=== PATIENT | male | born 1985 | race African-American/Black ===

== ENCOUNTER 2018-10-24 18:03 | Emergency (ER) | payer OTHER ==
[2018-10-24 18:22] VITALS: BP 119/74; PULSE 92; RESP 20; TEMP 98.3
[2018-10-24] MEDS ORDERED: KETOROLAC 60 MG/2 ML VIAL IM STA (20:19)
[2018-10-24] MEDS ORDERED: predniSONE 50 MG TAB PO STA (20:19)
--- NOTE | 2018-10-24 21:01 | XR ---
EXAMINATION TYPE: XR lumbar spine 2 or 3V DATE OF EXAM: 10/24/2018 COMPARISON: NONE HISTORY: Back pain TECHNIQUE: 3 views FINDINGS: Vertebra have normal spacing and alignment. Posterior elements are intact. Sacroiliac joint s appear normal. IMPRESSION: Normal lumbar spine exam.
--- NOTE | 2018-10-24 21:05 | ED ---
General Adult HPI - General Chief complaint: Back Pain/Injury Stated complaint: back pain Time Seen by Provider: 10/24/18 19:55 Source: patient, RN notes reviewed, old records reviewed Mode of arrival: ambulatory Limitations: no limitations - History of Present Illness Initial comments: 33-year-old male patient passed history of chronic lumbar back pain stemming from a related back injury approximately 10 years ago presents to ED with acute exacerbation of lumbar back pain. Patient denies any recent falls or trauma. 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 Patient reports that he has had approximately 2 days exacerbation of right lumbar back pain. Patient denies any saddle anesthesia, loss of bowel or bladder control, IV drug use, fevers or chills, lower extremity weakness. Systemic: Pt denies fatigue, fever/chills, rash. Pt denies weakness, night sweats, weight loss. Neuro: Pt denies headache, visual disturbances, syncope or pre-syncope. HEENT: Pt denies ocular discharge or irritation, otalgia, rhinorrhea, pharyngitis or notable lymphadenopathy. Cardiopulmonary: Pt denies chest pain, SOB, heart palpitations, dyspnea on exertion. Abdominal/GI: Pt denies abdominal pain, n/v/d. : Pt denies dysuria, burning w/ urination, frequency/urgency. Denies new onset urinary or bowel incontinence. MSK: Pt denies loss of strength or function in extremities. Neuro: Pt denies new onset weakness, paresthesias. - Related Data Previous Rx's Medication Instructions Recorded predniSONE 50 mg PO DAILY #4 tab 10/24/18 Allergies Allergy/AdvReac Type Severity Reaction Status Date / Time No Known Allergies Allergy Verified 10/24/18 18:22 Review of Systems ROS Statement: Those systems with pertinent positive or pertinent negative responses have been documented in the HPI. ROS Other: All systems not noted in ROS Statement are negative. Past Medical History Past Medical History: No Reported History History of Any Multi-Drug Resistant Organisms: None Reported Past Surgical History: No Surgical Hx Reported Past Psychological History: PTSD Smoking Status: Current every day smoker Past Alcohol Use History: None Reported Past Drug Use History: Marijuana General Exam - General Exam Comments Initial Comments: Constitutional: NAD, AOX3, Pt has pleasant affect. HEENT: NC/AT, trachea midline, neck supple, no lymphadenopathy. Posterior pharynx non erythematous, without exudates. External ears appear normal, without discharge. Mucous membranes moist. Eyes PERRLA, EOM intact. There is no scleral icterus. No pallor noted. Cardiopulmonary: RRR, no murmurs, rubs or gallops, no JVD noted. Lungs CTAB in anterior and posterior ruiz. No peripheral edema. Abdominal exam: Abdomen soft and non-distended. Abdomen non-tender to palpation in all 4 quadrants. Bowel sounds active in LLQ. No hepatosplenomegaly. No ecchymosis Neuro: CN II-XII grossly intact. No nuchal rigidity. MSK: Right paralumbar region mildly tender palpation. No midline cervical thoracic lumbar spinal tenderness. 5 out of 5 strength quadriceps psoas muscles. Heel toe walking intact. Patellar and Achilles reflex 2 out of 4 bilaterally. No posterior calf tenderness bilaterally, homans sign negative bilaterally. Posterior tibialis and radial pulse +2 bilaterally. Sensation intact in upper and lower extremities. Full active ROM in upper and lower extremities, 5/5 stregnth. Limitations: no limitations Course Vital Signs 10/24/18 18:20 Temperature 98.3 F Pulse Rate 92 Respiratory 20 Rate Blood Pressure 119/74 O2 Sat by Pulse 100 Oximetry Medical Decision Making - Medical Decision Making 33-year-old male patient passed history of chronic lumbar back pain stemming from a related back injury approximately 10 years ago presents to ED with acute exacerbation of lumbar back pain. Patient denies any recent falls or trauma. 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 Patient reports that he has had approximately 2 days exacerbation of right lumbar back pain. Patient denies any saddle anesthesia, loss of bowel or bladder control, IV drug use, fevers or chills, lower extremity weakness. Patient vital signs stable, afebrile. Physical exam displayed: Right paralumbar region mildly tender palpation. No midline cervical thoracic lumbar spinal tenderness. 5 out of 5 strength quadriceps psoas muscles. Heel toe walking intact. Patellar and Achilles reflex 2 out of 4 bilaterally. Plain film of lumbar spine displayed normal lumbar spine exam. Patient understood Toradol, prednisone. Patient discharged with 4 days of prednisone. Patient given orthopedic follow-up. Patient to return to ER if condition worsens in any way. Case discussed with Dr. Dominguez. Disposition Clinical Impression: Strain of lumbar region Disposition: HOME SELF-CARE Condition: Stable Instructions (If sedation given, give patient instructions): Acute Low Back Pain (ED), Chronic Back Pain (ED) Additional Instructions: Patient to adhere to previously discussed treatment plan and will take medication(s) as directed. Patient to follow up with PCP in 1-2 days. Patient to return to ED if symptoms do not improve. Please take medications as directed. Please use ibuprofen or Tylenol as needed for pain. Please follow-up with primary care physician and orthopedic consult 1-2 days for continued evaluation. Prescriptions: predniSONE 50 mg PO DAILY #4 tab Is patient prescribed a controlled substance at d/c from ED?: No Referrals: None,Stated [Primary Care Provider] - 1-2 days [facility] [NON-STAFF] - 1-2 days Ramón Addison DO [Medical Doctor] - 1-2 days
== END 2018-10-24 21:26 | disposition home or self-care (01) ==
LOC: EC 18:03
DX: S39.012A Strain of muscle, fascia and tendon of lower back, initial encounter (principal); F17.200 Nicotine dependence, unspecified, uncomplicated
CPT/HCPCS: 72100; 99284; 96372; J1885; J7512